=== PATIENT | male | born 1990 | race African-American/Black ===

== ENCOUNTER 2017-01-11 11:14 | Outpatient (CLI) | payer MEDICAID | END 2017-01-11 11:15 | disposition home or self-care (01) | DX: Z11.3 Encounter for screening for infections with a predominantly sexual mode of transmission (principal) ==

== ENCOUNTER 2017-04-04 13:34 | Emergency (ER) | payer MEDICAID ==
[2017-04-04 13:43] VITALS: BP 117/50
== END 2017-04-04 13:40 | disposition left against medical advice (07) ==
LOC: ED 13:34
DX: Z53.21 Procedure and treatment not carried out due to patient leaving prior to being seen by health care provider (principal)

== ENCOUNTER 2017-04-13 11:49 | Emergency (ER) | payer MEDICAID ==
--- NOTE | 2017-04-13 11:56 | ED Physician Documentation ---
PD HPI MHE - Stated complaint Stated Complaint: MHE - History obtained from History obtained from: Patient - History of Present Illness Primary symptom: Anxiety, Other (trouble sleeping). No: Suicidal ideation, Suicide attempt, Psychosis, Depression Contributing factors: No: Substance abuse - ETOH, Substance abuse - drugs Similar symptoms before: Diagnosis (anxiety) Recently seen: Admitted (psych facility and he says was given Clonazepam there and ativan for sleep.) Review of Systems Constitutional: denies: Fever, Chills Nose: denies: Rhinorrhea / runny nose, Congestion Throat: denies: Sore throat Respiratory: denies: Cough : denies: Dysuria, Frequency Neurologic: denies: Generalized weakness, Focal weakness, Numbness Psychiatric: reports: Anxiety, Insomnia PD PAST MEDICAL HISTORY - Past Medical History Cardiovascular: Hypertension Psych: ADD/ADHD - Past Surgical History Past Surgical History: No - Present Medications Home Medications: Ambulatory Orders Medication Instructions Recorded Confirmed Risperidone 4 mg PO DAILY #20 tablet 01/09/14 03/20/15 Guanfacine HCl 0.5 mg PO DAILY 03/20/15 03/20/15 Clonazepam 1 mg PO BID #60 tablet 04/13/17 LORazepam [Ativan] 1 mg PO Q12H PRN #30 tablet 04/13/17 - Allergies Allergies/Adverse Reactions: Allergies Allergy/AdvReac Type Severity Reaction Status Date / Time No Known Drug Allergies Allergy Verified 04/13/17 11:59 - Social History Does the pt smoke?: Yes Smoking Status: Current every day smoker Does the pt drink ETOH?: Yes Does the pt have substance abuse?: No - Immunizations Immunizations are current?: Yes - POLST Patient has POLST: No PD ED PE NORMAL - Vitals Vital signs reviewed: Yes - General General: Alert and oriented X 3, No acute distress, Well developed/nourished - HEENT HEENT: PERRL, Pharynx benign - Neck Neck: Supple, no meningeal sign, No adenopathy - Cardiac Cardiac: RRR, No murmur - Respiratory Respiratory: Clear bilaterally - Derm Derm: Normal color, Warm and dry - Neuro Neuro: Alert and oriented X 3, No motor deficit, Normal speech - Psych Psych: Normal mood, Normal affect Results - Vitals Vitals: Vital Signs - 24 hr 04/13/17 11:56 Temperature 36.4 C L Heart Rate 71 Respiratory 20 Rate Blood Pressure 119/74 O2 Saturation 99 Oxygen O2 Source Room air PD MEDICAL DECISION MAKING - ED course Complexity details: considered differential (anxiety without suicidal ideation nor vegetative symptoms. Nurse called [facility] to try to get appt sooner (but does not necessarily need emergency next-day appt) but were unable to get him sooner appt than the May 06. Gave Rx for dosing he had been on while hospitalized. ) Departure - Departure Disposition: Home, Self Care Clinical Impression: Anxiety Condition: Stable Record reviewed to determine appropriate education?: Yes Instructions: Generalized Anxiety Disorder Follow-Up: [facility] [Provider Group] Prescriptions: LORazepam [Ativan] 1 mg PO Q12H PRN #30 tablet PRN Reason: Anxiety Clonazepam 1 mg PO BID #60 tablet Comments: Continue your other usual medications. Clonazepam twice daily as needed for anxiety. Add Lorazepam infrequently only if needed for panic attack. Follow- up with your appointment May 06 at [facility]. We called to try to get a sooner appointment but there are no openings available so stay with that appointment. Be sure to make it. Discharge Date/Time: 04/13/17 12:21
[2017-04-13 11:59] VITALS: BP 119/74
[2017-04-13] MEDS ORDERED: LORazepam 0.5 MG TABLET PO STA (12:11)
[2017-04-13] MEDS ORDERED: LORazepam 0.5 MG TABLET ONE (12:20)
== END 2017-04-13 12:21 | disposition home or self-care (01) ==
LOC: ED 11:49
DX: F41.1 Generalized anxiety disorder (principal); I10 Essential (primary) hypertension; F17.200 Nicotine dependence, unspecified, uncomplicated
CPT/HCPCS: 99283; A9270

== ENCOUNTER 2017-04-26 15:58 | Emergency (ER) | payer MEDICAID ==
[2017-04-26 16:13] VITALS: BP 116/68
--- NOTE | 2017-04-26 18:42 | ED Physician Documentation ---
History of Present Illness - Stated complaint Stated Complaint: MED REFILL - Chief complaint Chief Complaint: General - Additonal information Additional information: hx from pt 26 y/o male followed at [facility] meds last filled 03/22 next appy 05/06 needs two meds refilled to last until then no other complaints no fever cough NVD Review of Systems Constitutional: denies: Fever, Chills Cardiac: denies: Chest pain / pressure Respiratory: denies: Dyspnea GI: denies: Abdominal Pain, Nausea, Vomiting PD PAST MEDICAL HISTORY - Past Medical History Cardiovascular: Hypertension Psych: ADD/ADHD - Past Surgical History Past Surgical History: No - Present Medications Home Medications: Ambulatory Orders Medication Instructions Recorded Confirmed Guanfacine HCl 0.5 mg PO DAILY 03/20/15 03/20/15 Clonazepam 1 mg PO BID #60 tablet 04/13/17 Guanfacine HCl 1 mg PO BID #20 tablet 04/26/17 LORazepam [Ativan] 1 tab PO Q12H PRN 04/26/17 04/26/17 Risperidone 2 mg PO DAILY 04/26/17 04/26/17 Risperidone 3 mg PO DAILY 04/26/17 04/26/17 risperiDONE [RisperDAL] 3 mg PO HS #10 tablet 04/26/17 traZODone [Desyrel] 50 mg DAILY 04/26/17 04/26/17 - Allergies Allergies/Adverse Reactions: Allergies Allergy/AdvReac Type Severity Reaction Status Date / Time hydrocodone Allergy Itching Verified 04/26/17 16:14 - Social History Does the pt smoke?: Yes Smoking Status: Current every day smoker Does the pt drink ETOH?: Yes Does the pt have substance abuse?: No - Immunizations Immunizations are current?: Yes - POLST Patient has POLST: No PD ED PE NORMAL - Vitals Vital signs reviewed: Yes - HEENT HEENT: Atraumatic - Cardiac Cardiac: RRR - Respiratory Respiratory: No respiratory distress, Clear bilaterally - Extremities Extremities: Normal ROM s pain - Neuro Neuro: Alert and oriented X 3 Results - Vitals Vitals: Vital Signs - 24 hr 04/26/17 16:11 Temperature 36.6 C Heart Rate 82 Respiratory 16 Rate Blood Pressure 116/68 O2 Saturation 100 Oxygen O2 Source Room air Departure - Departure Disposition: 01 Home, Self Care Clinical Impression: Medication refill Condition: Good Prescriptions: Guanfacine HCl 1 mg PO BID #20 tablet risperiDONE [RisperDAL] 3 mg PO HS #10 tablet
== END 2017-04-26 18:46 | disposition home or self-care (01) ==
LOC: ED 15:58
DX: Z76.0 Encounter for issue of repeat prescription (principal); I10 Essential (primary) hypertension; F17.200 Nicotine dependence, unspecified, uncomplicated
CPT/HCPCS: 99281; 99283

== ENCOUNTER 2018-08-22 00:23 | Emergency (ER) | payer MEDICAID ==
[2018-08-22 00:35] VITALS: BP 151/79
--- NOTE | 2018-08-22 01:00 | ED Physician Documentation ---
PD HPI URI - Stated complaint Stated Complaint: BUMP BY NOSE,CHEST CONGESTION - Chief complaint Chief Complaint: Heent - History obtained from History obtained from: Patient - History of Present Illness Timing - onset: How many days ago Timing duration: Days (3) Timing details: Gradual onset (he had bump/pimple in nostril 2 weeks ago and it grew bigger and he popped it, with pus out. Now with similar bump developing near site of first one.) Associated symptoms: No: Fever, Nasal congestion, Swollen nodes Recently seen: Not recently seen Review of Systems Constitutional: denies: Fever, Chills, Myalgias GI: denies: Nausea, Vomiting PD PAST MEDICAL HISTORY - Past Medical History Past Medical History: Yes Cardiovascular: Hypertension Psych: ADD/ADHD - Past Surgical History Past Surgical History: Yes Ortho: Other - Present Medications Home Medications: Ambulatory Orders Medication Instructions Recorded Confirmed Guanfacine HCl 1 mg PO BID #20 tablet 04/26/17 08/22/18 risperiDONE [Risperidone] 2 mg PO DAILY 04/26/17 08/22/18 traZODone [Desyrel] 50 mg DAILY 04/26/17 08/22/18 Mupirocin 1 applic TP TID #15 g 08/22/18 Naproxen 375 mg PO BID #15 tablet 08/22/18 Sulfamethox/Trimeth 800/160 1 each PO BID #14 tablet 08/22/18 [Bactrim Ds 800/160] - Allergies Allergies/Adverse Reactions: Allergies Allergy/AdvReac Type Severity Reaction Status Date / Time hydrocodone Allergy Itching Verified 08/22/18 00:29 - Social History Does the pt smoke?: Yes Smoking Status: Current every day smoker Does the pt drink ETOH?: Yes Does the pt have substance abuse?: No - Immunizations Immunizations are current?: Yes - POLST Patient has POLST: No PD ED PE NORMAL - Vitals Vital signs reviewed: Yes - General General: Alert and oriented X 3, No acute distress, Well developed/nourished - HEENT HEENT: Ears normal, Pharynx benign, Other (left nasal passage just inside nasal passageway has a small tender bump with redness c/w abscess early. ) - Neck Neck: Supple, no meningeal sign, No adenopathy - Cardiac Cardiac: RRR, No murmur - Respiratory Respiratory: Clear bilaterally Results - Vitals Vitals: Vital Signs - 24 hr 08/22/18 00:26 Temperature 36.4 C L Heart Rate 89 Respiratory 16 Rate Blood Pressure 151/79 H O2 Saturation 100 Oxygen O2 Source Room air PD MEDICAL DECISION MAKING - ED course Complexity details: reviewed results, considered differential, d/w patient Departure - Departure Disposition: 01 Home, Self Care Clinical Impression: Abscess of nasal cavity Condition: Stable Record reviewed to determine appropriate education?: Yes Instructions: ED Staph Infec Abx Tx Only Prescriptions: Mupirocin 1 applic TP TID #15 g Naproxen 375 mg PO BID #15 tablet Sulfamethox/Trimeth 800/160 [Bactrim Ds 800/160] 1 each PO BID #14 tablet Comments: Cleanse the nasal passage with just some water or saline or saline nasal spray and then apply mupirocin antibiotic ointment lightly in the nasal passages on both sides with a Q-tip. Use Bactrim oral antibiotic twice daily for the next week to get at the infection as well. Recheck if not improved over the next several days return sooner if worsening. You can use naproxen twice daily for the inflammation and pain. Discharge Date/Time: 08/22/18 01:30
[2018-08-22] MEDS ORDERED: SULFAMETH/TRIMETH DS 800/160 MG TABLET PO STA (01:20)
[2018-08-22] MEDS ORDERED: SULFAM/TRIM 800/160 Prepack 2 PO ONE (01:20)
== END 2018-08-22 01:30 | disposition home or self-care (01) ==
LOC: ED 00:23
DX: K04.7 Periapical abscess without sinus (principal); Z87.891 Personal history of nicotine dependence
CPT/HCPCS: 99283; A9270

== ENCOUNTER 2018-08-23 10:22 | Emergency (ER) | payer MEDICAID ==
[2018-08-23 10:42] VITALS: BP 153/90
--- NOTE | 2018-08-23 12:33 | ED Physician Documentation ---
PD HPI MHE - Stated complaint Stated Complaint: MHE - Chief complaint Chief Complaint: MHE - History obtained from History obtained from: Patient - History of Present Illness Primary symptom: Anxiety, Out of meds Contributing factors: Off meds Similar symptoms before: Diagnosis (Personality Disorder) Recently seen: Emergency Dept (Was seen here in the Emergency Department last night for nasal infection.) - Additional information Additional information: The patient is a 27-year-old male with a history of personality disorder, who presents for mental evaluation at the urging of his mother. He has been feeling more anxious than usual lately. His past she has been treated with medications including Vyvanse, Risperdal, Guanfacine. He has been out of his medications for the past 2 months. Although he is enrolled in the [facility] system, he has not been seen by a prescriber at that facility. He denies the use of alcohol or other drugs. He denies suicidal ideation, and denies any thoughts of harming others. He was seen in the emergency department last night complaining of a nasal in fection. He was prescribed Bactrim and mupirocin. Review of Systems Constitutional: denies: Fever Eyes: denies: Irritation Ears: denies: Tinnitus/ringing Nose: reports: Other (Sore on nasal mucosa left nasal ala.). denies: Congestion Throat: denies: Sore throat Cardiac: denies: Chest pain / pressure Respiratory: denies: Dyspnea, Cough GI: denies: Abdominal Pain, Nausea, Vomiting : denies: Dysuria Skin: denies: Rash Musculoskeletal: denies: Back pain, Extremity pain Neurologic: denies: Focal weakness, Headache Psychiatric: reports: Anxiety. denies: Depressed, Suicidal, Homicidal PD PAST MEDICAL HISTORY - Past Medical History Past Medical History: Yes Cardiovascular: Hypertension Respiratory: None Neuro: None Endocrine/Autoimmune: None GI: None : None HEENT: None Psych: Anxiety, ADD/ADHD Musculoskeletal: None Derm: None - Past Surgical History Past Surgical History: Yes Ortho: Other - Present Medications Home Medications: Ambulatory Orders Medication Instructions Recorded Confirmed Guanfacine HCl 1 mg PO BID #20 tablet 04/26/17 08/22/18 risperiDONE [Risperidone] 2 mg PO DAILY 04/26/17 08/22/18 Mupirocin 1 applic TP TID #15 g 12/26/18 Naproxen 375 mg PO BID #15 tablet 08/22/18 Sulfamethox/Trimeth 800/160 1 each PO BID #14 tablet 08/22/18 [Bactrim Ds 800/160] Guanfacine HCl 1 mg PO BID #30 tablet 08/23/18 Lisdexamfetamine Dimesylate 20 mg PO 08/23/18 08/23/18 [Vyvanse] Lisdexamfetamine Dimesylate 20 mg PO DAILY #14 capsule 08/23/18 [Vyvanse] risperiDONE [Risperdal] 2 mg PO DAILY #14 tablet 08/23/18 - Allergies Allergies/Adverse Reactions: Allergies Allergy/AdvReac Type Severity Reaction Status Date / Time hydrocodone Allergy Itching Verified 08/23/18 10:42 - Social History Does the pt smoke?: Yes Smoking Status: Current every day smoker Does the pt drink ETOH?: Yes ETOH Use: Beer Does the pt have substance abuse?: No - Immunizations Immunizations are current?: Yes - POLST Patient has POLST: No PD ED PE NORMAL - Vitals Vital signs reviewed: Yes (Initially hypertensive) - General General: Alert and oriented X 3, Well developed/nourished, Other (Hyperalert, and distrustful.) - HEENT HEENT: Atraumatic, EOMI - Neck Neck: No adenopathy, No JVD - Cardiac Cardiac: RRR - Respiratory Respiratory: No respiratory distress, Clear bilaterally - Abdomen Abdomen: Soft, Non tender - Back Back: No CVA TTP - Derm Derm: No rash - Extremities Extremities: No deformity, No edema - Neuro Neuro: Alert and oriented X 3, No motor deficit, No sensory deficit - Psych Psych: Other (Hyperalert; expresses distrust of medical staff. ) Results - Vitals Vitals: Oxygen O2 Source Room air PD MEDICAL DECISION MAKING - ED course Complexity details: reviewed old records, re-evaluated patient, considered differential, d/w patient ED course: The patient's presentation is significant for anxiety related to underlying personality disorder. There is no evidence to suggest an acute danger to himself or others. He was previously treated through the [facility] program, but is currently scheduled to be seen at [facility]. I consulted medical legal investigator, who evaluated him in the emergency department, and confirmed his enrollment in the [facility] system. I discussed with him the importance of outpatient follow-up, as well as potentially worrisome signs or symptoms that should prompt reevaluation in the emergency department. He is being discharged with prescription for 2 weeks supply of Vyvanse, risperidone, and Guanfacine. Departure - Departure Disposition: 01 Home, Self Care Clinical Impression: Personality disorder, Medication refill Condition: Stable Instructions: ED Personality Disorder Prescriptions: Guanfacine HCl 1 mg PO BID #30 tablet Lisdexamfetamine Dimesylate [Vyvanse] 20 mg PO DAILY #14 capsule risperiDONE [Risperdal] 2 mg PO DAILY #14 tablet Comments: Take the medication as prescribed. Follow-up with your primary provider at [place] [facility] as scheduled. Return to the emergency department if worsening symptoms. Discharge Date/Time: 08/23/18 12:46
== END 2018-08-23 12:46 | disposition home or self-care (01) ==
LOC: ED 10:22
DX: F60.9 Personality disorder, unspecified (principal); F41.9 Anxiety disorder, unspecified; I10 Essential (primary) hypertension; F17.200 Nicotine dependence, unspecified, uncomplicated
CPT/HCPCS: 99283

== ENCOUNTER 2019-09-30 11:58 | Emergency (ER) | payer MEDICAID ==
[2019-09-30 12:17] VITALS: BP 161/72
--- NOTE | 2019-09-30 13:05 | ED Physician Documentation ---
PD HPI HEENT - Stated complaint Stated Complaint: NOSE PX - Chief complaint Chief Complaint: Heent - History obtained from History obtained from: Patient (3 days of mildly painful nasal abscess on the right. No fevers. No external swelling. He has had this before. No known history of MRSA.) Review of Systems Constitutional: denies: Fever, Chills Nose: denies: Rhinorrhea / runny nose Throat: denies: Sore throat Cardiac: denies: Chest pain / pressure, Palpitations PD PAST MEDICAL HISTORY - Past Medical History Cardiovascular: Hypertension Respiratory: None Neuro: None Endocrine/Autoimmune: None GI: None : None HEENT: None Psych: Anxiety, ADD/ADHD Musculoskeletal: None Derm: None - Past Surgical History Past Surgical History: Yes Ortho: Other - Present Medications Home Medications: Ambulatory Orders Medication Instructions Recorded Confirmed Guanfacine HCl 1 mg PO BID #20 tablet 04/26/17 08/22/18 risperiDONE [Risperidone] 2 mg PO DAILY 04/26/17 08/22/18 Mupirocin 1 applic TP TID #15 g 08/22/18 Naproxen 375 mg PO BID #15 tablet 08/22/18 Sulfamethox/Trimeth 800/160 1 each PO BID #14 tablet 08/22/18 [Bactrim Ds 800/160] Guanfacine HCl 1 mg PO BID #30 tablet 08/23/18 Lisdexamfetamine Dimesylate 20 mg PO 08/23/18 08/23/18 [Vyvanse] Lisdexamfetamine Dimesylate 20 mg PO DAILY #14 capsule 08/23/18 [Vyvanse] risperiDONE [Risperdal] 2 mg PO DAILY #14 tablet 08/23/18 Clindamycin HCl [Clindamycin 300MG 300 mg PO Q6H #28 capsule 09/30/19 CAP] - Allergies Allergies/Adverse Reactions: Allergies Allergy/AdvReac Type Severity Reaction Status Date / Time hydrocodone Allergy Itching Verified 09/30/19 12:14 - Social History Does the pt smoke?: Yes Smoking Status: Current every day smoker Does the pt drink ETOH?: Yes Does the pt have substance abuse?: No - Immunizations Immunizations are current?: Yes - POLST Patient has POLST: No PD ED PE NORMAL - Vitals Vital signs reviewed: Yes - General General: Alert and oriented X 3, No acute distress - HEENT HEENT: Other (There is a tender area on the inside of the right nares laterally without much swelling. It does look pointed though.) - Neck Neck: Supple, no meningeal sign, No bony TTP - Neuro Neuro: Alert and oriented X 3, Normal speech Results - Vitals Vitals: Vital Signs - 24 hr 09/30/19 12:14 Temperature 36.5 C Heart Rate 77 Respiratory 14 Rate Blood Pressure 161/72 H O2 Saturation 98 Oxygen O2 Source Room air PD MEDICAL DECISION MAKING - ED course ED course: He did not really tolerate efforts at manipulation of the small abscess. I offered to do some anesthetic but he wants to just try antibiotics. The pros and cons of that approach were discussed with him and he will return if worse. Departure - Departure Disposition: 01 Home, Self Care Clinical Impression: Abscess of nasal cavity Condition: Good Record reviewed to determine appropriate education?: Yes Instructions: ED Staph Infec Abx Tx Only Prescriptions: Clindamycin HCl [Clindamycin 300MG CAP] 300 mg PO Q6H #28 capsule Comments: As discussed, I recommend drainage of the abscess. You want to just do antibiotics and that is not unreasonable, but that said if it progresses or does not get better please return in the 48 to 72-hour time range for reevaluation.
== END 2019-09-30 13:10 | disposition home or self-care (01) ==
LOC: ED 11:58
DX: J34.0 Abscess, furuncle and carbuncle of nose (principal); I10 Essential (primary) hypertension; F17.200 Nicotine dependence, unspecified, uncomplicated
CPT/HCPCS: 99282; 99283

== ENCOUNTER 2019-12-09 11:59 | Emergency (ER) | payer MEDICAID ==
[2019-12-09 12:24] VITALS: BP 151/89
[2019-12-09] MEDS ORDERED: risperiDONE 1 MG TABLET PO STA (12:43)
--- NOTE | 2019-12-09 12:45 | ED Physician Documentation ---
History of Present Illness - Stated complaint Stated Complaint: MED REFILL - Chief complaint Chief Complaint: Resp - History obtained from History obtained from: Patient (29-year-old gentleman with psychiatric illness is out of his medications and feeling very anxious about coronavirus. He has no symptoms of coronavirus, no cough, no fever, no respiratory issues but still worries about a lot. It is unclear why he has not followed up with [facility] to refill his medications, he says he will make an attempt to do so after this visit. He denies SI or HI.) Review of Systems Constitutional: denies: Fever, Chills Nose: denies: Rhinorrhea / runny nose Cardiac: denies: Chest pain / pressure, Palpitations Respiratory: denies: Dyspnea, Cough PD PAST MEDICAL HISTORY - Past Medical History Past Medical History: Yes Cardiovascular: Hypertension Respiratory: None Neuro: None Endocrine/Autoimmune: None GI: None : None HEENT: None Psych: Anxiety, ADD/ADHD Musculoskeletal: None Derm: None - Past Surgical History Past Surgical History: Yes Ortho: Other - Present Medications Home Medications: Ambulatory Orders Medication Instructions Recorded Confirmed Risperidone [Risperdal] 2 mg PO BID #60 tablet 12/09/19 hydrOXYzine pamoate [Hydroxyzine 1 tab PO QPM #30 capsule 12/09/19 Pamoate] - Allergies Allergies/Adverse Reactions: Allergies Allergy/AdvReac Type Severity Reaction Status Date / Time hydrocodone Allergy Itching Verified 12/09/19 12:25 - Social History Does the pt smoke?: Yes Smoking Status: Current every day smoker Does the pt drink ETOH?: Yes Does the pt have substance abuse?: No - Immunizations Immunizations are current?: Yes - POLST Patient has POLST: No PD ED PE NORMAL - Vitals Vital signs reviewed: Yes - General General: Alert and oriented X 3, No acute distress, Other (He appears anxious and hypervigilant but is calm and oriented) - Neuro Neuro: Alert and oriented X 3, Normal speech - Psych Psych: Normal mood, Normal affect Results - Vitals Vitals: Vital Signs - 24 hr 12/09/19 12:12 Temperature 36.6 C Heart Rate 89 Respiratory 18 Rate Blood Pressure 151/89 H O2 Saturation 99 Oxygen O2 Source Room air PD MEDICAL DECISION MAKING - ED course ED course: 29-year-old gentleman here for a medication refill. His meds were refilled, he said on his last visit they wanted to switch him from trazodone at night to hydroxyzine and he said he would prefer that and this was done. Departure - Departure Disposition: 01 Home, Self Care Clinical Impression: Medication refill, Anxiety Condition: Good Record reviewed to determine appropriate education?: Yes Instructions: ED Panic Attack Prescriptions: hydrOXYzine pamoate [Hydroxyzine Pamoate] 1 tab PO QPM #30 capsule Risperidone [Risperdal] 2 mg PO BID #60 tablet Comments: Follow-up with [facility] at [phone] to schedule psychiatric care and counseling.
== END 2019-12-09 12:50 | disposition home or self-care (01) ==
LOC: ED 11:59
DX: Z76.0 Encounter for issue of repeat prescription (principal); F41.9 Anxiety disorder, unspecified; I10 Essential (primary) hypertension; F17.200 Nicotine dependence, unspecified, uncomplicated
CPT/HCPCS: 99282; 99283; A9270

== ENCOUNTER 2020-02-07 10:29 | Emergency (ER) | payer MEDICAID ==
[2020-02-07 10:50] VITALS: BP 140/68
--- NOTE | 2020-02-07 10:59 | ED Physician Documentation ---
History of Present Illness - Stated complaint Stated Complaint: MED REFIL - Chief complaint Chief Complaint: General - History obtained from History obtained from: Patient - History of Present Illness Timing: Today Pain level max: 0 Pain level now: 0 - Additonal information Additional information: Patient states that he is out of his risperidone and trazodone. Requesting refills. No hallucinations. No SI or HI. Nothing makes it better or worse. Usually refilled by [facility] Review of Systems Constitutional: denies: Fever, Chills GI: denies: Vomiting, Diarrhea Skin: denies: Rash Psychiatric: denies: Suicidal, Homicidal PD PAST MEDICAL HISTORY - Past Medical History Cardiovascular: Hypertension Respiratory: None Neuro: None Endocrine/Autoimmune: None GI: None : None HEENT: None Psych: Anxiety, ADD/ADHD Musculoskeletal: None Derm: None - Past Surgical History Past Surgical History: Yes Ortho: Other - Present Medications Home Medications: Ambulatory Orders Medication Instructions Recorded Confirmed Risperidone [Risperdal] 2 mg PO BID #60 tablet 02/07/20 traZODone [Desyrel] 50 mg PO DAILY PM #30 tablet 02/07/20 - Allergies Allergies/Adverse Reactions: Allergies Allergy/AdvReac Type Severity Reaction Status Date / Time hydrocodone Allergy Itching Verified 02/07/20 10:45 - Social History Does the pt smoke?: Yes Smoking Status: Current every day smoker Does the pt drink ETOH?: Yes Does the pt have substance abuse?: No - Immunizations Immunizations are current?: Yes - POLST Patient has POLST: No PD ED PE NORMAL - Vitals Vital signs reviewed: Yes - General General: Alert and oriented X 3, No acute distress, Well developed/nourished - HEENT HEENT: Moist mucous membranes - Neck Neck: Supple, no meningeal sign - Respiratory Respiratory: No respiratory distress - Derm Derm: Warm and dry - Neuro Neuro: Alert and oriented X 3 - Psych Psych: Normal mood, Normal affect Results - Vitals Vitals: Vital Signs - 24 hr 02/07/20 10:47 Temperature 36.6 C Heart Rate 69 Respiratory 15 Rate Blood Pressure 140/68 H O2 Saturation 98 Oxygen O2 Source Room air PD MEDICAL DECISION MAKING - ED course Complexity details: considered differential, d/w patient ED course: Medications refilled. He will follow-up with [facility] for further refills. Departure - Departure Disposition: 01 Home, Self Care Clinical Impression: Medication refill Condition: Good Follow-Up: Your,doctor in 1 week [Other] Prescriptions: Risperidone [Risperdal] 2 mg PO BID #60 tablet traZODone [Desyrel] 50 mg PO DAILY PM #30 tablet Comments: Follow-up with [facility] for further refills of your medication. Discharge Date/Time: 02/07/20 11:07
== END 2020-02-07 11:07 | disposition home or self-care (01) ==
LOC: ED 10:29
DX: F41.9 Anxiety disorder, unspecified (principal); F90.9 Attention-deficit hyperactivity disorder, unspecified type; Z76.0 Encounter for issue of repeat prescription; I10 Essential (primary) hypertension; F17.200 Nicotine dependence, unspecified, uncomplicated
CPT/HCPCS: 99282; 99283

== ENCOUNTER 2020-03-16 10:27 | Emergency (ER) | payer MEDICAID ==
[2020-03-16 10:42] VITALS: BP 131/86
--- NOTE | 2020-03-16 12:17 | ED Physician Documentation ---
History of Present Illness - Stated complaint Stated Complaint: MED REFILL - Chief complaint Chief Complaint: General - History obtained from History obtained from: Patient - History of Present Illness Timing: Today Pain level max: 0 Pain level now: 0 - Additonal information Additional information: Running out of his psychiatric medications. Requesting refill Patient is out of both his risperidone and trazodone. He is followed by [facility]. Nothing makes this better or worse. Review of Systems Constitutional: denies: Fever Psychiatric: denies: Suicidal, Homicidal, Hallucinations, Anxiety, Insomnia PD PAST MEDICAL HISTORY - Past Medical History Cardiovascular: Hypertension Respiratory: None Neuro: None Endocrine/Autoimmune: None GI: None : None HEENT: None Psych: Anxiety, ADD/ADHD Musculoskeletal: None Derm: None - Past Surgical History Past Surgical History: Yes Ortho: Other - Present Medications Home Medications: Ambulatory Orders Medication Instructions Recorded Confirmed Risperidone [Risperdal] 2 mg PO BID #60 tablet 03/16/20 traZODone [Desyrel] 50 mg PO DAILY PM #30 tablet 03/16/20 - Allergies Allergies/Adverse Reactions: Allergies Allergy/AdvReac Type Severity Reaction Status Date / Time hydrocodone Allergy Itching Verified 02/07/20 10:45 - Social History Does the pt smoke?: Yes Smoking Status: Current every day smoker Does the pt drink ETOH?: Yes Does the pt have substance abuse?: No - Immunizations Immunizations are current?: Yes - POLST Patient has POLST: No PD ED PE NORMAL - Vitals Vital signs reviewed: Yes - General General: Alert and oriented X 3, No acute distress - HEENT HEENT: Moist mucous membranes - Neck Neck: Supple, no meningeal sign - Derm Derm: Warm and dry - Extremities Extremities: No edema - Neuro Neuro: Alert and oriented X 3 Results - Vitals Vitals: Vital Signs - 24 hr 03/16/20 10:37 Temperature 37.1 C Heart Rate 100 Respiratory 24 Rate Blood Pressure 131/86 H O2 Saturation 100 Oxygen O2 Source Room air PD MEDICAL DECISION MAKING - ED course Complexity details: reviewed old records, considered differential, d/w patient ED course: Medications were refilled. He was informed that he needs to follow-up with his doctor for further refills. No emergency medical condition at this time. This document was made in part using voice recognition software. While efforts are made to proofread this document, sound alike and grammatical errors may occur. Departure - Departure Disposition: 01 Home, Self Care Clinical Impression: Medication refill Condition: Good Instructions: ED Screening Exam Medical Nonurgent Follow-Up: Your,doctor in 1 week [Other] Prescriptions: traZODone [Desyrel] 50 mg PO DAILY PM #30 tablet Risperidone [Risperdal] 2 mg PO BID #60 tablet Comments: Return if you worsen. Follow-up with your doctor for further care.
== END 2020-03-16 12:22 | disposition home or self-care (01) ==
LOC: ED 10:27
DX: F41.9 Anxiety disorder, unspecified (principal); F90.9 Attention-deficit hyperactivity disorder, unspecified type; Z76.0 Encounter for issue of repeat prescription; I10 Essential (primary) hypertension; F17.200 Nicotine dependence, unspecified, uncomplicated
CPT/HCPCS: 99282; 99283

== ENCOUNTER 2020-05-10 00:14 | Emergency (ER) | payer MEDICAID ==
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
[2020-05-10] MEDS ORDERED: BACITRACIN ZINC OINT 1 PACKET TOP STA (00:28)
[2020-05-10] MEDS ORDERED: TETANUS/DIPHTHERIA/PERTUSSIS 0.5 ML SYRINGE IM ONE (00:28)
[2020-05-10] MEDS ORDERED: LORazepam 2 MG/ML VIAL IVP STA (01:12)
[2020-05-10] MEDS ORDERED: SODIUM CHLORIDE 0.9% 1,000 ML IV STA (01:12)
[2020-05-10 01:21] LABS: BASOPHILS # (AUTO) 0.1 10^3/uL (0.0-0.1); BASOPHILS % (AUTO) 0.6 %; EOSINOPHILS # (AUTO) 0.3 10^3/uL (0.0-0.7); EOSINOPHILS % (AUTO) 3.6 %; HGB - HEMOGLOBIN 15.2 g/dL (14.0-18.0); LYMPHOCYTES # (AUTO) 2.3 10^3/uL (1.5-3.5); MEAN CORPUSCULAR HEMOGLOBIN 29.5 pg (27.0-31.0); MEAN CORPUSCULAR HGB CONC 33.6 g/dL (32.0-36.0); MEAN CORPUSCULAR VOLUME 87.8 fL (80.0-94.0); MEAN PLATELET VOLUME 8.9 fL (7.4-11.4); MONOCYTES # (AUTO) 0.9 10^3/uL (0.0-1.0); MONOCYTES % (AUTO) 9.9 %; NEUTROPHILS % (AUTO) 58.5 %; PLT - PLATELET COUNT 203 10^3/uL (130-450); RED BLOOD COUNT 5.16 10^6/uL (4.70-6.10); RED CELL DISTRIBUTION WIDTH 12.1 % (12.0-15.0); WHITE BLOOD COUNT 8.6 x10^3/uL (4.8-10.8)
[2020-05-10 01:34] LABS: INR 1.2 (0.8-1.2); PT - PROTHROMBIN TIME 13.1 secs (9.9-12.6)
[2020-05-10 01:41] LABS: PARTIAL THROMBOPLASTIN TIME 27.4 secs (24.9-33.3)
[2020-05-10 01:42] LABS: ACETAMINOPHEN < 10 ug/mL (10-30); ALBUMIN 4.3 g/dL (3.2-5.5); ALBUMIN/GLOBULIN RATIO 1.6 (1.0-2.2); ALKALINE PHOSPHATASE 58 IU/L (42-121); ALT ALANINE AMINOTRANSFERASE 37 IU/L (10-60); AST ASPARTATE AMINOTRANSFERASE 38 IU/L (10-42); BILIRUBIN,TOTAL 0.8 mg/dL (0.2-1.0); BUN - BLOOD UREA NITROGEN 31 mg/dL (6-20); CALCIUM 9.3 mg/dL (8.5-10.3); CARBON DIOXIDE - CO2 28 mmol/L (21-32); CHLORIDE 102 mmol/L (101-111); CK- CREATINE KINASE 937 IU/L (22-269); CREATININE 1.2 mg/dL (0.6-1.2); GLUCOSE 142 mg/dL (70-100); LIPASE 23 U/L (22-51); SALICYLATE < 6.0 mg/dL; SODIUM 138 mmol/L (135-145)
[2020-05-10 02:19] VITALS: BP 118/70
--- NOTE | 2020-05-10 07:29 | CT Report ---
PROCEDURE: HEAD WO INDICATIONS: head injury TECHNIQUE: Noncontrast 4.5 mm thick angled axial sections acquired from the foramen magnum to the vertex. For r adiation dose reduction, the following was used: automated exposure control, adjustment of mA and/or kV according to patient size. COMPARISON: None. FINDINGS: Image quality: Excellent. CSF spaces: There is left frontal paramedian pneumocephalus. Small gas foci are seen extending to th e vertex. No visible extra-axial fluid collection. Basal cisterns are patent. Ventricles are normal in size and shape. Brain: There are questionable punctate foci of cortical hyperdensity in the left anterior frontal lo be subjacent to the skull fracture and pneumocephalus. No other areas of intracranial hemorrhage iden tified. No intraventricular hemorrhage. No midline shift. No intracranial masses. Reynolds-white matter interface is normal. Skull and face: There is a comminuted skull fracture in the left frontal region with inner table frag ments depressed by 10 mm. There is a focal overlying subcutaneous hematoma.. Sinuses: Visualized sinuses and mastoids are clear. IMPRESSION: 1. Open, comminuted, and depressed left frontal skull fracture with pneumocephalus. 2. Questionable underlying petechial cortical contusion. 3. Concordant with preliminary report. Reviewed by: Karly Ash MD on 05/10/2020 7:28 AM PDT Approved by: Karly Ash MD on 05/10/2020 7:28 AM PDT Station ID: [id number]
== END 2020-05-10 02:50 | disposition short-term general hospital (02) ==
LOC: ED 00:14
DX: S02.0XXB Fracture of vault of skull, initial encounter for open fracture (principal); Y04.2XXA Assault by strike against or bumped into by another person, initial encounter; Y92.009 Unspecified place in unspecified non-institutional (private) residence as the place of occurrence of the external cause; F17.200 Nicotine dependence, unspecified, uncomplicated
CPT/HCPCS: 36415; 70450; 80053; 80307; 80320; 80329; 82550; 82553; 83690; 84443; 85025; 85610; 85730; 96361; 96374; 99285; 99291; A9270; J2060

== ENCOUNTER 2020-05-10 02:48 | Outpatient (CLI) | payer MEDICAID, OTHER | END 2020-05-10 02:49 | disposition short-term general hospital (02) | LOC: EMS 02:48 | PROVIDERS: ATTEND Surgery | DX: S02.0XXB Fracture of vault of skull, initial encounter for open fracture (principal); Y00.XXXA Assault by blunt object, initial encounter | CPT/HCPCS: A0425; A0426 ==